=== PATIENT | male | born 2000 | race Two or more races ===

== ENCOUNTER 2022-12-10 09:51 | Emergency (ER) | payer OTHER ==
[~2022-12-10] VITALS: Ht 167.6 cm; Wt 57.8 kg
[2022-12-10 10:30] VITALS: BP 105/68; PULSE 73; RESP 16; TEMP 98; O2SAT 99
[2022-12-10] MEDS ORDERED: NAPR-746 PO (10:49)
== END 2022-12-10 10:45 | disposition home or self-care (01) ==
LOC: ER 09:51
DX: S60.211A Contusion of right wrist, initial encounter (principal); V49.88XA Car occupant (driver) (passenger) injured in other specified transport accidents, initial encounter; Y93.89 Activity, other specified; Y92.89 Other specified places as the place of occurrence of the external cause; Y99.8 Other external cause status
CPT/HCPCS: 73110